=== PATIENT | female | born 1970 | race African-American/Black ===

== ENCOUNTER 2017-04-06 17:17 | Emergency (ER) | payer BC ==
[~2017-04-06] VITALS: Ht 160 cm; Wt 89.8 kg
[2017-04-06 17:28] VITALS: BP 143/90
[2017-04-06] MEDS ORDERED: OFLO5DRO7 LEFT EAR (17:56)
[2017-04-06] MEDS ORDERED: AMOX500C PO (17:56)
--- NOTE | 2017-04-06 17:56 | PHYS DOC ---
Past Medical History Past Medical History: Asthma, Bronchitis, Diverticulitis, Other Additional Past Medical Histor: HERNIA, GASTRITIS Past Surgical History: Other Additional Past Surgical Histo: SURGERY ON SPLEEN Alcohol Use: Occasionally Drug Use: None Adult General Chief Complaint Chief Complaint: EARACHE/EAR PAIN [facility] HPI Patient is a 46 year old female presents to the emergency department stating that she has had left ear pain and discomfort for the last 2 days. She states that she got out of the shower yesterday and was trying on her ear. She states that she felt increased pain and discomfort today and has decreased hearing. Patient's denies fever, chills or any nausea vomiting. She denies any sore throat cough or congestion. Patient states the pain is throbbing type pain. She has has taken Tylenol for pain and discomfort with minimal relief. Review of Systems Review of Systems Constitutional: Denies fever or chills [] Eyes: Denies change in visual acuity, redness, or eye pain [] HENT: Denies nasal congestion or sore throat. Complaint of left ear pain and discomfort. Respiratory: Denies cough or shortness of breath [] Cardiovascular: No additional information not addressed in HPI [] GI: Denies abdominal pain, nausea, vomiting, bloody stools or diarrhea [] : Denies dysuria or hematuria [] Musculoskeletal: Denies back pain or joint pain [] Integument: Denies rash or skin lesions [] Neurologic: Denies headache, focal weakness or sensory changes [] Endocrine: Denies polyuria or polydipsia [] Physical Exam Physical Exam Constitutional: Well developed, well nourished, no acute distress, non-toxic appearance. [] HENT: Normocephalic, atraumatic, bilateral external ears normal, oropharynx moist, no oral exudates, nose normal. Right tympanic membrane appears to be normal, left tympanic membrane appears to be whitish in color, ear canal appears to be red in color as well. No drainage or discharge noted. Throat with no erythematous no drainage no discharge noted. No exudate. Eyes: PERRLA, EOMI, conjunctiva normal, no discharge. [] Neck: Normal range of motion, no tenderness, supple, no stridor. [] Cardiovascular:Heart rate regular rhythm, no murmur [] Lungs & Thorax: Bilateral breath sounds clear to auscultation [] Skin: Warm, dry, no erythema, no rash. [] Back: No tenderness Extremities: No tenderness, no cyanosis, no clubbing, ROM intact, no edema. [] Neurologic: Alert and oriented X 3, normal motor function, normal sensory function, no focal deficits noted. [] Psychologic: Affect normal, judgement normal, mood normal. [] Current Patient Data Vital Signs Vital Signs Date Time Temp Pulse Resp B/P (MAP) Pulse Ox O2 Delivery O2 Flow Rate FiO2 04/06/17 17:28 98.7 92 20 95 Room Air 98.7 EKG EKG [] Radiology/Procedures Radiology/Procedures [] Course & Med Decision Making Course & Med Decision Making Pertinent Labs and Imaging studies reviewed. (See chart for details) Patient will be placed on ofloxacin ear drops with recommendations to keep the area clean and dry. Patient will also be placed on amoxicillin. Patient was encouraged to use Tylenol or ibuprofen for pain and discomfort. Warm moist packs to the outer part of the left ear may also help with discomfort. Patient will be discharged home in stable condition signs and symptoms to return back to emergency department as been provided. Patient agrees with discharge instructions treatment regimens and follow-up recommendations. [] Dragon Disclaimer Dragon Disclaimer This electronic medical record was generated, in whole or in part, using a voice recognition dictation system. Departure Departure Impression: Primary Impression: Left otitis media Additional Impression: Left otitis externa Disposition: 01 HOME, SELF-CARE Condition: STABLE Patient Instructions: Otitis Externa, [id number], Otitis Media, Child, Easy- to-Read Additional Instructions: Activity as tolerated. Tylenol or ibuprofen for pain and discomfort. Medication as prescribed. Warm moist packs to the left ear may also help with pain and discomfort. Follow-up with a primary care physician in the next 3-5 days. Return back to the emergency department for signs and symptoms of become worse. Scripts Ofloxacin (OFLOXACIN) 5 Ml Drops 5 DROP LEFT EAR BID, #10 ML Placed eardrops into the left ear for the next 7 days. Prov: YISEL GAUTHIER APRN 04/06/17 Amoxicillin (AMOXICILLIN) 500 Mg Capsule 1 CAP PO BID, #20 CAP Prov: YISEL GAUTHIER APRN 04/06/17 Problem Qualifiers YISEL GAUTHIER APRN Apr 06, 2017 17:56
== END 2017-04-06 18:04 | disposition home or self-care (01) ==
LOC: ER 17:17
DX: H66.92 Otitis media, unspecified, left ear (principal); H60.92 Unspecified otitis externa, left ear; J45.909 Unspecified asthma, uncomplicated
CPT/HCPCS: 99283